=== PATIENT | male | born 1975 | race Two or more races ===

== ENCOUNTER 2023-10-24 17:25 | Emergency (ER) | payer MEDICAID, OTHER ==
[~2023-10-24] VITALS: Ht 172.7 cm; Wt 91.3 kg
[2023-10-24 17:36] VITALS: BP 148/89; PULSE 67; RESP 18; O2SAT 98
[2023-10-24 18:12] LABS: Chloride 110 mmol/L (98-107); Potassium 4.3 mmol/L (3.5-5.1); Sodium 142 mmol/L (136-145)
[2023-10-24 18:13] LABS: Anion Gap 5 (5-15); Calcium 9.9 mg/dL (8.7-10.4); Carbon Dioxide 27 mmol/L (20-30)
[2023-10-24 18:17] LABS: Basophils # (auto) 0 10 ^3/uL (0-0.2); Basophils % (auto) 0.5 % (0.0-2.0); Eosinophils # (auto) 0.1 10 ^3/uL (0-0.8); Eosinophils % (auto) 0.9 % (0.0-7.0); Hemoglobin 14.5 g/dL (13.5-17.5); Lymphocytes % (auto) 30.6 % (10.0-50.0); Mean Corpuscular Hemoglobin 29.9 pg (28.0-32.0); Mean Corpuscular Hgb Conc. 34.5 g/dL (32.0-36.0); Mean Corpuscular Volume 86.7 fL (80.0-100.0); Monocytes # (auto) 0.4 10 ^3/uL (0-1.3); Neutrophils # (auto) 3.9 10 ^3/uL (1.6-8.6); Nucleated Red Blood Cells % 0.1 %; Red Blood Cells 4.85 10^6/uL (4.5-5.90); Red Cell Distribution Width 13.3 % (11.8-14.3); White Blood Cell 6.4 10^3/uL (4.4-10.8)
[2023-10-24 18:18] LABS: BUN/Creatinine Ratio 17.8 (10.0-20.0); Blood Urea Nitrogen 16 mg/dL (9-23); Glucose 89 mg/dL (74-106)
[2023-10-24] MEDS ORDERED: HYDR25SU21 PR (19:14)
== END 2023-10-24 21:46 | disposition home or self-care (01) ==
LOC: ER 17:25
DX: K64.8 Other hemorrhoids (principal); K62.5 Hemorrhage of anus and rectum
CPT/HCPCS: 36415; 74176; 80048; 85025

== ENCOUNTER 2024-02-23 09:04 | Inpatient (IN) | payer MEDICAID ==
[~2024-02-23] VITALS: Ht 172.7 cm; Wt 93.3 kg
[~2024-02-23 09:04] MED LIST: HYDR25SU21 PR
--- NOTE | 2024-02-23 09:38 | ED.PDOC ---
HPI Comments 48 y.o male presents to the ED for a chief complaint of substernal chest pain associated with a headache that started 2 weeks ago. Patient described pain as sharp, constant, non radiating with no alleviating factors and rates pain a 7/10. Patient reports he also had high blood pressure readings at home but denies history of HTN. Upon ED arrival, pressure read 154/94. He denies any SOB, nausea, vomiting, diarrhea, abdominal pain, recent head injuries, dizziness. He denies medical, surgical history or allergies. No substance, alcohol or tobacco noted. Chief Complaint: High Blood Pressure Time Seen by MD: 09:26 Reviewed Notes: Nurses Notes, Medications, Allergies Allergies: Coded Allergies: NO KNOWN ALLERGIES (Unverified , 02/23/24) Home Meds Active Scripts Hydrocortisone Acetate (Anusol-Hc) 25 Mg Sup, 1 SUPP [place] BID, #14 SUPP Prov:MALISSA SADLER MD 10/24/23 Information Source: Patient Mode of Arrival: Ambulatory Severity: Moderate Timing: Weeks (2) Duration: Since onset Location: Substernal Radiation: No Radiation Quality: Sharp Onset: At Rest Cardiac Risk Factors: None PE Risk Factors: None History of: None Modifying Factors: Nothing Associated Signs and Symptoms: Other (headache ) Past Medical History PAST MEDICAL HISTORY: Denies Surgical History: Denies all surgeries Family History Family History: Family hx of DM Social History Smoker: Non-Smoker Alcohol: Denies ETOH Use Drugs: Denies Drug Use Lives In: Home Constitutional: denies: chills, diaphoresis, fatigue, fever, malaise, sweats, weakness, others EENTM: denies: blurred vision, double vision, ear bleeding, ear discharge, ear drainage, ear pain, ear ringing, eye pain, eye redness, hearing loss, mouth pain, mouth swelling, nasal discharge, nose bleeding, nose congestion, nose pain, photophobia, tearing, throat pain, throat swelling, voice changes, others Respiratory: denies: cough, hemoptysis, orthopnea, SOB at rest, shortness of breath, SOB with excertion, stridor, wheezing, others Cardiovascular: reports: chest pain; denies: dizzy spells, diaphoresis, Dyspnea on exertion, edema, irregular heart beat, left arm pain, lightheadedness, palpitations, PND, syncope, others Gastrointestinal: denies: abdomen distended, abdominal pain, blood streaked bowels, constipated, diarrhea, dysphagia, difficulty swallowing, hematemesis, melena, nausea, poor appetite, poor fluid intake, rectal bleeding, rectal pain, vomiting, others Genitourinary: denies: burning, dysuria, flank pain, frequency, hematuria, incontinence, penile discharge, penile sore, pain, testicle pain, testicle swelling, urgency, others Neurological: reports: headache; denies: dizziness, fainting, left sided numbness, left sided weakness, numbness, paresthesia, pre-existing deficit, right sided numbness, right sided weakness, seizure, speech problems, tingling, tremors, weakness, others Musculoskeletal: denies: back pain, gout, joint pain, joint swelling, muscle pain, muscle stiffness, neck pain, others Integumetry: denies: bruises, change in color, change in hair/nails, dryness, laceration, lesions, lumps, rash, wounds, others Allergic/Immunocompromised: denies: Difficulty Healing, Frequent Infections, Hives, Itching, others Hematologic/Lymphatic: denies: anemia, blood clots, easy bleeding, easy bruising, swollen glands, others Endocrine: denies: excessive hunger, excessive sweating, excessive thirst, excessive urination, flushing, intolerance to cold, intolerance to heat, unexplained weight gain, unexplained weight loss, others Psychiatric: denies: anxiety, bipolar disorder, depression, hopeless, panic disorder, schizophrenia, sleepless, suicidal, others All Other Systems: Reviewed and Negative Physical Exam General Appearance: Moderate Distress HEENT: Normal ENT Inspection, Pharynx Normal, TMs Normal Neck: Full Range of Motion, Non-Tender, Normal, Normal Inspection Respiratory: Chest Non-Tender, Lungs Clear, No Accessory Muscle Use, No Respiratory Distress, Normal Breath Sounds Cardiovascular: No Edema, No JVD, No Murmur, No Gallop, Normal Peripheral Pulses, Regular Rate/Rhythm Breast Exam: Deferred Gastrointestinal: No Organomegaly, Non Tender, No Pulsatile Mass, Normal Bowel Sounds, Soft Genitalia: Deferred Pelvic: Deferred Rectal: Deferred Extremities: No calf tenderness, Normal capillary refill, Normal inspection, Normal range of motion, Non-tender, No pedal edema Musculoskeletal : Apperance: Normal Neurologic: Alert, electronic test technician II-XII nml as Tested, No Motor Deficits, Normal Affect, Normal Mood, No Sensory Deficits Cerebellar Function: Normal Reflexes: Normal Skin: Dry, Normal Color, Warm Peripheral Pulses: 3+ Radial (R), 3+ Radial (L) Lymphatic: No Adenopathy Was a procedure done? Was a procedure done?: No CP Differential Dx Differential Diagnosis: A-fib, A-Flutter, Angina, Anxiety / Panic Attack, Atrial Dysrhythmia, Electrolyte Disorder, N/A Differential Diagnosis: Angina, Chest Wall Pain, Cholelithiasis, Costochondrit is, Esophageal reflux/spasm, Pericarditis X-Ray, Labs, Meds, VS Vital Signs Date Time Temp Pulse Resp B/P (MAP) Pulse Ox O2 Delivery O2 Flow Rate FiO2 02/23/24 09:23 66 02/23/24 09:23 98.3 62 16 155/94 (114) 98 Lab Test 02/23/24 10:43 02/23/24 09:29 Range/Units Troponin I High Sensitivity < 3 L < 3 L </=54 ng/L White Blood Count 6.8 4.4-10.8 10^3/uL Red Blood Count 5.24 4.5-5.90 10^6/uL Hemoglobin 15.4 13.5-17.5 g/dL Hematocrit 45.7 41.0-53.0 % Mean Corpuscular Volume 87.1 80.0-100.0 fL Mean Corpuscular Hemoglobin 29.4 28.0-32.0 pg Mean Corpuscular Hemoglobin Concent 33.8 32.0-36.0 g/dL Red Cell Distribution Width 13.1 11.8-14.3 % Platelet Count 193 140-450 10^3/uL Mean Platelet Volume 8.7 6.9-10.8 fL Neutrophils (%) (Auto) 54.3 37.0-80.0 % Lymphocytes (%) (Auto) 36.2 10.0-50.0 % Monocytes (%) (Auto) 7.8 0.0-12.0 % Eosinophils (%) (Auto) 1.0 0.0-7.0 % Basophils (%) (Auto) 0.7 0.0-2.0 % Neutrophils # (Auto) 3.7 1.6-8.6 10 ^3/uL Lymphocytes # (Auto) 2.5 0.4-5.4 10 ^3/uL Monocytes # (Auto) 0.5 0-1.3 10 ^3/uL Eosinophils # (Auto) 0.1 0-0.8 10 ^3/uL Basophils # (Auto) 0 0-0.2 10 ^3/uL Nucleated Red Blood Cells 0.1 % Sodium Level 139 136-145 mmol/L Potassium Level 4.2 3.5-5.1 mmol/L Chloride Level 105 98-107 mmol/L Carbon Dioxide Level 27 20-31 mmol/L Anion Gap 7 5-15 Blood Urea Nitrogen 14 9-23 mg/dL Creatinine 0.97 0.700-1.30 mg/dL Glomerular Filtration Rate Calc 97 >90 mL/min BUN/Creatinine Ratio 14.4 10.0-20.0 Serum Glucose 86 74-106 mg/dL Calcium Level 10.2 8.7-10.4 mg/dL Total Bilirubin 1.2 H 0.2-1.0 mg/dL Aspartate Amino Transferase (AST) 15 13-40 U/L Alanine Aminotransferase (ALT) 22 7-40 U/L Alkaline Phosphatase 77 46-116 U/L Total Protein 7.8 5.7-8.2 g/dL Albumin 4.9 H 3.2-4.8 g/dL Patient alert. Complaining of chest pain. Vitals stable. Answering questions. Was given aspirin. Was given nitro. Blood pressure elevated. Has risk factor for his coronary artery disease. Echocardiogram. Reviewed her history. Explained to the patient. Continue cardiac monitoring. EKG reviewed does not show any acute changes. Time of 1ST Reevaluation: 09:35 Reevaluation 1ST: Unchanged Patient Education/Counseling: Diagnosis, Treatment, Prognosis Family Education/Counseling: No Family Present Departure 1 Departure Time of Disposition: 11:47 Impression: Primary Impression: Chest pain of unknown etiology Additional Impressions: Hypertensive urgency Uncontrolled diabetes mellitus Qualified Codes: E13.65 - Other specified diabetes mellitus with hyperglycemia Disposition: ADMITTED INPATIENT Admit to: Med Surg Condition: Guarded Critical Care Note Critical Care Time?: Yes (45 min-critical care time only) Stability Stability form required: No Heart Score Heart Score: Heart Score Response (Comments) Value History Slightly Suspicious 0 EKG Normal 0 Age 45-64 1 Risk Factors 1 or 2 risk factors 1 Troponin Normal limit 0 Total 2 I personally scribed for DIANE JOHNSON MD ([email or web address]) on 02/23/24 at 09:38. Electronically submitted by Rachael Davidson ([facility]). DIANE JOHNSON MD Feb 23, 2024 09:38
[2024-02-23 10:12] LABS: Basophils # (auto) 0 10 ^3/uL (0-0.2); Basophils % (auto) 0.7 % (0.0-2.0); Eosinophils # (auto) 0.1 10 ^3/uL (0-0.8); Hematocrit 45.7 % (41.0-53.0); Hemoglobin 15.4 g/dL (13.5-17.5); Lymphocytes # (auto) 2.5 10 ^3/uL (0.4-5.4); Lymphocytes % (auto) 36.2 % (10.0-50.0); Mean Corpuscular Hemoglobin 29.4 pg (28.0-32.0); Mean Corpuscular Hgb Conc. 33.8 g/dL (32.0-36.0); Mean Corpuscular Volume 87.1 fL (80.0-100.0); Monocytes # (auto) 0.5 10 ^3/uL (0-1.3); Monocytes % (auto) 7.8 % (0.0-12.0); Neutrophils # (auto) 3.7 10 ^3/uL (1.6-8.6); Neutrophils % (auto) 54.3 % (37.0-80.0); Nucleated Red Blood Cells % 0.1 %; Platelet Count (auto) 193 10^3/uL (140-450); Red Blood Cells 5.24 10^6/uL (4.5-5.90); Red Cell Distribution Width 13.1 % (11.8-14.3); White Blood Cell 6.8 10^3/uL (4.4-10.8)
[2024-02-23 10:15] LABS: Alanine Aminotransferase 22 U/L (7-40); Albumin 4.9 g/dL (3.2-4.8); Alkaline Phosphatase 77 U/L (46-116); Anion Gap 7 (5-15); Aspartate Aminotransferase 15 U/L (13-40); BUN/Creatinine Ratio 14.4 (10.0-20.0); Bilirubin, Total 1.2 mg/dL (0.2-1.0); Blood Urea Nitrogen 14 mg/dL (9-23); Calcium 10.2 mg/dL (8.7-10.4); Carbon Dioxide 27 mmol/L (20-31); Chloride 105 mmol/L (98-107); Glucose 86 mg/dL (74-106); Potassium 4.2 mmol/L (3.5-5.1); Sodium 139 mmol/L (136-145); Total Protein 7.8 g/dL (5.7-8.2)
[2024-02-23] MEDS: ASPirin 325 MG TAB PO ONE (12:28)
[2024-02-23] MEDS: NITROGLYCERIN 0.4 MG SL TAB SL ONE (12:28)
[2024-02-23 12:30] VITALS: PULSE 77; RESP 18; O2SAT 98
[2024-02-23] MEDS ORDERED: MORPHINE SULFATE INJ 2 MG/ml SYRG IV PRN (14:15)
[2024-02-23] MEDS ORDERED: HYDROcodone-ACET 5/325MG TAB PO PRN (14:15)
[2024-02-23] MEDS ORDERED: NITROGLYCERIN 0.4 MG SL TAB SL PRN (14:15)
[2024-02-23] MEDS ORDERED: ONDANSETRON HCL 4 MG/2 ML VIAL IV PRN (14:15)
[2024-02-23 15:02] LABS: Triglycerides 99 mg/dL (< 150)
[2024-02-23 15:03] LABS: LDL Cholesterol 133 mg/dL (< 100)
[2024-02-23 15:04] LABS: HDL Cholesterol 55 mg/dL (40-59)
[2024-02-23 15:05] LABS: Cholesterol 203 mg/dL (< 200)
--- NOTE | 2024-02-23 15:19 | DVHHP2 ---
History of Present Illness Reason for Visit: Chest pain History of Present Illness 48-year-old male presented to the ED with chief complaint of substernal chest pain associated with headache, patient states headache started 2 weeks ago which has been off and on. Patient states chest pain started today, patient describes it as sharp, constant and nonradiating with no alleviating factors, rates pain 7/10. Patient states blood pressure readings were high at home and denies a history of hypertension. Patient denies dizziness, diaphoresis, shortness of breath, abdominal pain, no nausea, vomiting, fever, or chills endorsed by the patient. Patient was admitted for further evaluation medical management. Past Medical History Denies Past Surgical History Denies Family History Reviewed noncontributory to the management of this case Smoke: No ALCOHOL: none Drugs: None Lives: with Family Review of Systems Constitutional: No: Fever, Chills, Sweats, Weakness, Malaise, Other Eyes: No: Pain, Vision change, Conjunctivae inflammation, Eyelid inflammation, Other, Redness ENT: No: Ear pain, Ear discharge, Nose pain, Nose discharge, Nose congestion, Mouth pain, Mouth swelling, Throat pain, Throat swelling, Other Respiratory: No: Cough, Dry, Shortness of breath, SOB with excertion, Wheezing, Hemoptysis, Pleuritic Pain, Sputum, Wheezing, Other Cardiovascular: Chest Pain (Pressure, sharp); No: Palpitations, Orthopnea, Paroxysmal Noc. Dyspnea, Edema, Lt Headedness, Other Gastrointestinal: No: Nausea, Vomiting, Abdominal Pain, Diarrhea, Constipation, Melena, Hematochezia, Other Genitourinary: No Dysuria, No Frequency, No Incontinence, No Hematuria, No Retention, No Other Musculoskeletal: No: other, neck pain, shoulder pain, arm pain, back pain, hand pain, leg pain, foot pain Skin: No: Rash, Lesions, Jaundice, Bruising, Other Neurological: No: Weakness, Numbness, Incoordination, Change in speech, Confusion, Seizures, Other Allergies: Coded Allergies: NO KNOWN ALLERGIES (Unverified , 02/23/24) Medications Current Medications Medications Dose Ordered Sig/Aly Route Start Time Stop Time Status Last Admin Dose Admin Acetaminophen/ Hydrocodone Bitart 1 tab Q4HP PRN PO 02/23/24 14:15 Ondansetron HCl 4 mg Q4HP PRN IV 02/23/24 14:15 Nitroglycerin 0.4 mg Q5MINP PRN SL 02/23/24 14:15 Morphine Sulfate 2 mg Q30M PRN IV 02/23/24 14:15 Exam Vital Signs Vital Signs Date Time Temp Pulse Resp B/P (MAP) Pulse Ox O2 Delivery O2 Flow Rate FiO2 02/23/24 12:30 77 18 98 Room Air* 0 21 02/23/24 12:29 98.2 128/88 (101) 98.2 General Appearance: Alert, Oriented X3, Cooperative, No acute distress HEENT: Atraumatic, PERRLA, EOMI, Mucous membr. moist/pink Respiratory: Clear to auscultation, Normal air movement Cardiovascular: Regular rate, Normal S1, Normal S2, No murmurs Abdominal: Normal bowel sounds, Soft, No tenderness, No hepatospenomegaly, No masses Extremities: No clubbing, No cyanosis, No edema, Normal pulses, No tenderness/swelling Skin: No rashes, No breakdown, No significant lesion Neuro: Normal gait, Normal speech, Strength at 5/5 X4 ext, Normal tone, Sensation intact, Cranial nerves 3-12 NL Psych/Mental Status: Mental status NL, Mood NL Labs/Xrays Labs, ED notes and imaging reviewed Labs Test 02/23/24 10:43 02/23/24 09:29 Range/Units Troponin I High Sensitivity < 3 L </=54 ng/L White Blood Count 6.8 4.4-10.8 10^3/uL Red Blood Count 5.24 4.5-5.90 10^6/uL Hemoglobin 15.4 13.5-17.5 g/dL Hematocrit 45.7 41.0-53.0 % Mean Corpuscular Volume 87.1 80.0-100.0 fL Mean Corpuscular Hemoglobin 29.4 28.0-32.0 pg Mean Corpuscular Hemoglobin Concent 33.8 32.0-36.0 g/dL Red Cell Distribution Width 13.1 11.8-14.3 % Platelet Count 193 140-450 10^3/uL Mean Platelet Volume 8.7 6.9-10.8 fL Neutrophils (%) (Auto) 54.3 37.0-80.0 % Lymphocytes (%) (Auto) 36.2 10.0-50.0 % Monocytes (%) (Auto) 7.8 0.0-12.0 % Eosinophils (%) (Auto) 1.0 0.0-7.0 % Basophils (%) (Auto) 0.7 0.0-2.0 % Neutrophils # (Auto) 3.7 1.6-8.6 10 ^3/uL Lymphocytes # (Auto) 2.5 0.4-5.4 10 ^3/uL Monocytes # (Auto) 0.5 0-1.3 10 ^3/uL Eosinophils # (Auto) 0.1 0-0.8 10 ^3/uL Basophils # (Auto) 0 0-0.2 10 ^3/uL Nucleated Red Blood Cells 0.1 % Sodium Level 139 136-145 mmol/L Potassium Level 4.2 3.5-5.1 mmol/L Chloride Level 105 98-107 mmol/L Carbon Dioxide Level 27 20-31 mmol/L Anion Gap 7 5-15 Blood Urea Nitrogen 14 9-23 mg/dL Creatinine 0.97 0.700-1.30 mg/dL Glomerular Filtration Rate Calc 97 >90 mL/min BUN/Creatinine Ratio 14.4 10.0-20.0 Serum Glucose 86 74-106 mg/dL Calcium Level 10.2 8.7-10.4 mg/dL Total Bilirubin 1.2 H 0.2-1.0 mg/dL Aspartate Amino Transferase (AST) 15 13-40 U/L Alanine Aminotransferase (ALT) 22 7-40 U/L Alkaline Phosphatase 77 46-116 U/L Total Protein 7.8 5.7-8.2 g/dL Albumin 4.9 H 3.2-4.8 g/dL Assessment/Plan Assessment/Plan Acute chest pain Admit telemetry ACS protocol Consult cardiology No current chest pain after nitro/aspirin given Serial troponin negative x2 EKG sinus rhythm Hypertensive urgency Blood pressure now within normal limits 128/88 mmHg Lipid panel pending Fen/PPX Cardiac diet GI/VTE prophylaxis not indicated Plan discussed with: Patient My Orders Orders - MAURI LAI Procedure Category Date Status Time * Cardiology Consult CONS 02/23/24 Transmitted 14:09 Admit ADMIT 02/23/24 Transmitted 14:09 Code Status CODE 02/23/24 Transmitted 14:09 Vital Signs DELVIN 02/23/24 In Process 14:09 Review Orders With DELVIN 02/23/24 In Process Adm. 14:09 Up Ad Ludmila BANNER 02/23/24 In Process 14:09 Notify Of Changes BANNER 02/23/24 In Process From Base 14:09 Advance Directive BANNER 02/23/24 In Process 14:09 Basic Metabolic Panel LAB 02/24/24 Verified 04:00 Complete Blood Count LAB 02/24/24 Verified 04:00 Lipid Panel LAB 02/23/24 In Process 14:09 Patient Condition ORDERS 02/23/24 Transmitted 14:09 Allergies BANNER 02/23/24 In Process 14:09 Hydrocodone-Acet PHA 02/23/24 In Process 5/325mg Tab ([place] 14:15 Ondansetron Hcl PHA 02/23/24 In Process (Zofran) 14:15 Cardiac DIET 02/23/24 Transmitted Diet-2gna,Lofat,Lochol Dinner Nitroglycerin PHA 02/23/24 In Process Sublingual (Ntrostat 14:15 Morphine Sulfate PHA 02/23/24 In Process Injection 14:15 Stat Ekg For Chest BANNER 02/23/24 In Process Pain 14:09 Notify Of Changes BANNER 02/23/24 In Process From Base 14:09 Cant Gang Sawyer For BANNER 02/23/24 In Process 24 Hours 14:09 Emergency Dysrhythmia BANNER 02/23/24 In Process Protocol 14:09 Rhythm Strips Once BANNER 02/23/24 In Process Every Shift 14:09 Oxygen By Nasal RT 02/23/24 Transmitted Cannula 14:09 Date of Service: Feb 23, 2024 Billing Provider: MAURI LAI Common Visit Codes: [id number] INP/OBS CARE (HIGH) MAURI LAI Feb 23, 2024 15:19
[2024-02-23] MEDS ORDERED: cloNIDine HCL 0.1 MG TAB PO PRN (15:30)
[2024-02-23 20:20] VITALS: PULSE 61; RESP 17; O2SAT 93
[2024-02-24 05:10] LABS: Basophils # (auto) 0 10 ^3/uL (0-0.2); Basophils % (auto) 0.5 % (0.0-2.0); Eosinophils # (auto) 0 10 ^3/uL (0-0.8); Eosinophils % (auto) 0.8 % (0.0-7.0); Hematocrit 41.9 % (41.0-53.0); Hemoglobin 14.1 g/dL (13.5-17.5); Lymphocytes # (auto) 1.7 10 ^3/uL (0.4-5.4); Lymphocytes % (auto) 30.4 % (10.0-50.0); Mean Corpuscular Hemoglobin 29.7 pg (28.0-32.0); Mean Corpuscular Hgb Conc. 33.7 g/dL (32.0-36.0); Monocytes # (auto) 0.4 10 ^3/uL (0-1.3); Neutrophils # (auto) 3.4 10 ^3/uL (1.6-8.6); Neutrophils % (auto) 60.3 % (37.0-80.0); Nucleated Red Blood Cells % 0.2 %; Platelet Count (auto) 163 10^3/uL (140-450); Red Blood Cells 4.76 10^6/uL (4.5-5.90); Red Cell Distribution Width 13.3 % (11.8-14.3); White Blood Cell 5.6 10^3/uL (4.4-10.8)
[2024-02-24 05:20] LABS: Anion Gap 7 (5-15); Carbon Dioxide 26 mmol/L (20-31); Chloride 110 mmol/L (98-107); Potassium 4.4 mmol/L (3.5-5.1); Sodium 143 mmol/L (136-145)
[2024-02-24 05:21] LABS: Calcium 9.3 mg/dL (8.7-10.4)
[2024-02-24 05:26] LABS: BUN/Creatinine Ratio 19.3 (10.0-20.0); Blood Urea Nitrogen 16 mg/dL (9-23); Glucose 93 mg/dL (74-106)
[2024-02-24 08:02] VITALS: TEMP 98.1
--- NOTE | 2024-02-24 08:20 | DVH ---
CHEST RADIOGRAPH Indication:chest pain Technique: Single frontal view of the chest was obtained Comparison: None FINDINGS: Lines and Tubes: None Lungs: No focal consolidation. Pleura: No effusion. No pneumothorax. Cardiomediastinal contours: Unremarkable Bones: No acute osseous abnormality. IMPRESSION: No acute cardiopulmonary disease.
[2024-02-24 08:35] LABS: Amphetamine Screen, Urine Neg (NEGATIVE); Barbiturate Scree,Urine Neg (NEGATIVE); Benzodiazephine Screen, Urine Neg (NEGATIVE); Cocaine Screen, Urine Neg (NEGATIVE); Opiate Scree,Urine Neg (NEGATIVE); Phencyclidine Screen, Urine Neg (NEGATIVE)
[2024-02-24 08:36] LABS: Cannabinoid Screen, Urine Neg (NEGATIVE)
--- NOTE | 2024-02-24 10:19 | ECG ---
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
[2024-02-24 12:36] VITALS: BP 160/102; PULSE 64
[2024-02-24 12:56] LABS: Erythrocyte Sedimentation Rate 2 mm/hr (0-20)
[2024-02-24] MEDS: LISINOPRIL 5 MG TAB PO ONE (13:15)
[2024-02-24 14:26] VITALS: BP 112/72; PULSE 65; RESP 18; O2SAT 97
--- NOTE | 2024-02-24 16:11 | DVHINCON2 ---
Date Seen: Feb 24, [address] Tapia Reason for Consultation Chest pain History of Present Illness 48-year-old male patient with past medical history of hypertension and type 1 obesity who presented to the emergency department with a chief complaint of chest pain. The chest pain is described as pressure-like nonradiating constant and intermittently occurring over the past 2 weeks. He also reported associated headache with during the same period of time. The patient denies any prior similar episode and says he is otherwise active with no limitations during physical activity. 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 The patient reports a significant family history of diabetes affecting the majority of his relatives. Laboratory evaluation revealed elevated cholesterol and LDL levels. His vital signs were notable for mild hypotension. Cardiac biomarkers including troponin were negative and a resting EKG was unremarkable the patient underwent a stress test using the Juwan protocol, which was completed without issues. Results were normal except for increased diastolic blood pressure during the test consistent with underlying hypertension. Given the findings the patient was diagnosed with hypertension and started on lisinopril 2.5 mg daily for blood pressure control. He was also counseled on lifestyle modifications including dietary changes and increased physical activity, to address his elevated cholesterol and LDL levels. The patient was advised to establish care with the primary care provider and a deep fryer assembler for further follow-up. For the cardiovascular risk factor optimization was emphasized. Past Medical History Type 1 obesity Essential Hypertension Allergies: Coded Allergies: NO KNOWN ALLERGIES (Unverified , 02/23/24) Home Meds Active Scripts Hydrocortisone Acetate (Anusol-Hc) 25 Mg Sup, 1 SUPP [place] BID, #14 SUPP Prov:MALISSA SADLER MD 10/24/23 Current Medications Current Medications Medications (Trade) Dose Ordered Sig/Aly Route PRN Reason Start Time Stop Time Status Last Admin Atorvastatin Calcium (Lipitor) 40 mg HS PO 02/24/24 22:00 Lisinopril (Zestril Tablet) 2.5 mg DAILY PO 02/25/24 10:00 Review of Systems Constitutional: No: Fever, Chills, Sweats, Weakness, Malaise, Other Eyes: No: Pain, Vision change, Conjunctivae inflammation, Eyelid inflammation, Other, Redness ENT: No: Ear pain, Ear discharge, Nose pain, Nose discharge, Nose congestion, Mouth pain, Mouth swelling, Throat pain, Throat swelling, Other Respiratory: No Wheezing, Hemoptysis, Pleuritic Pain, Sputum, Wheezing, Other Cardiovascular: No: Chest Pain, Palpitations, Orthopnea, Paroxysmal Noc. Dyspnea, Edema, Lt Headedness, Other Gastrointestinal: No: Nausea, Vomiting, Abdominal Pain, Diarrhea, Constipation, Melena, Hematochezia, Other Musculoskeletal: No: other, neck pain, shoulder pain, arm pain, back pain, hand pain, leg pain, foot pain Neurological:; No: Weakness, Numbness, Incoordination, Change in speech, Confusion, Seizures Vital Signs Vital Signs Date Time Temp Pulse Resp B/P (MAP) Pulse Ox O2 Delivery O2 Flow Rate FiO2 02/24/24 14:26 65 18 112/72 (85) 97 02/24/24 08:02 98.1 98.1 02/23/24 20:20 Room Air* 0 21 Physical Exam Examination General Appearance: Alert, Oriented X3, Cooperative, No acute distress HEENT: EOMI Respiratory: Clear to auscultation, Normal air movement Cardiovascular: Regular rate, Normal S1, Normal S2 Abdominal: Normal bowel sounds Extremities: No cyanosis, No edema, Normal pulses, No tenderness/swelling Skin: No rashes, No breakdown Neuro: Normal gait, Normal speech, Strength at 5/5 X4 ext, Normal tone, Sensation intact, Cranial nerves 3-12 NL, Reflexes 2+ Psych/Mental Status: Mental status NL, Mood NL Labs/Diagnostic Data Labs Test 02/24/24 06:47 02/24/24 04:30 02/23/24 10:43 02/23/24 09:29 Range/Units Urine Opiates Screen Neg NEGATIVE Urine Fentanyl Screen Neg NEGATIVE Urine Barbiturates Screen Neg NEGATIVE Urine Phencyclidine Screen Neg NEGATIVE Urine Amphetamines Screen Neg NEGATIVE Urine Benzodiazepines Screen Neg NEGATIVE Urine Cocaine Screen Neg NEGATIVE Urine Cannabinoids Screen Neg NEGATIVE White Blood Count 5.6 4.4-10.8 10^3/uL Red Blood Count 4.76 4.5-5.90 10^6/uL Hemoglobin 14.1 13.5-17.5 g/dL Hematocrit 41.9 41.0-53.0 % Mean Corpuscular Volume 88.0 80.0-100.0 fL Mean Corpuscular Hemoglobin 29.7 28.0-32.0 pg Mean Corpuscular Hemoglobin Concent 33.7 32.0-36.0 g/dL Red Cell Distribution Width 13.3 11.8-14.3 % Platelet Count 163 140-450 10^3/uL Mean Platelet Volume 8.6 6.9-10.8 fL Neutrophils (%) (Auto) 60.3 37.0-80.0 % Lymphocytes (%) (Auto) 30.4 10.0-50.0 % Monocytes (%) (Auto) 8.0 0.0-12.0 % Eosinophils (%) (Auto) 0.8 0.0-7.0 % Basophils (%) (Auto) 0.5 0.0-2.0 % Neutrophils # (Auto) 3.4 1.6-8.6 10 ^3/uL Lymphocytes # (Auto) 1.7 0.4-5.4 10 ^3/uL Monocytes # (Auto) 0.4 0-1.3 10 ^3/uL Eosinophils # (Auto) 0 0-0.8 10 ^3/uL Basophils # (Auto) 0 0-0.2 10 ^3/uL Nucleated Red Blood Cells 0.2 % Erythrocyte Sedimentation Rate 2 0-20 mm/hr Sodium Level 143 136-145 mmol/L Potassium Level 4.4 3.5-5.1 mmol/L Chloride Level 110 H 98-107 mmol/L Carbon Dioxide Level 26 20-31 mmol/L Anion Gap 7 5-15 Blood Urea Nitrogen 16 9-23 mg/dL Creatinine 0.83 0.700-1.30 mg/dL Glomerular Filtration Rate Calc 109 >90 mL/min BUN/Creatinine Ratio 19.3 10.0-20.0 Serum Glucose 93 74-106 mg/dL Hemoglobin A1c 5.3 <5.7 % A1C Calcium Level 9.3 8.7-10.4 mg/dL C-Reactive Protein High Sensitivity 0.07 <1.0 mg/dL Thyroid Stimulating Hormone (TSH) 1.78 0.55-4.78 uIU/mL Troponin I High Sensitivity < 3 L </=54 ng/L Triglycerides Level 99 < 150 mg/dL Cholesterol Level 203 H < 200 mg/dL LDL Cholesterol 133 H < 100 mg/dL HDL Cholesterol 55 40-59 mg/dL Total Bilirubin 1.2 H 0.2-1.0 mg/dL Aspartate Amino Transferase (AST) 15 13-40 U/L Alanine Aminotransferase (ALT) 22 7-40 U/L Alkaline Phosphatase 77 46-116 U/L Total Protein 7.8 5.7-8.2 g/dL Albumin 4.9 H 3.2-4.8 g/dL Assessment Acute chest pain likely musculoskeletal Essential Hypertension Stress test (protocol) did show increased diastolic blood pressure during the test Type 1 obesity Hyperlipidemia Plan/Recommendation Conservative management Start high blood pressure control with lisinopril 2.5 mg daily Start lipid lowering agents Lifestyle modification counseling, improving dietary habits and physical activity was encouraged. Stress test (juwan protocol) was unremarkable Plan discussed with: Patient Date of Service: Feb 24, 2024 Billing Provider: ADALBERTO PHILIP MD Cardiology Common Codes: [id number] INP/OBS CARE (High) PAKO WHITMORE RESIDENT Feb 24, 2024 16:11
[2024-02-24] MEDS ORDERED: ATOR20TA50 PO (17:40)
[2024-02-24] MEDS ORDERED: LISI-275 PO (17:40)
--- NOTE | 2024-02-24 17:41 | DVHDSRES ---
Discharge Summary Date of Admission Resident Creating Document: KAYODE WRIGHT RESIDENT Feb 23, 2024 at 14:09 Date of Discharge: Feb 24, 2024 Admitting Diagnosis Left-sided chest pain Labs/Diagnostic Data: Laboratory Results Test 02/24/24 06:47 02/24/24 04:30 02/23/24 10:43 02/23/24 09:29 Urine Opiates Screen Neg (NEGATIVE) Urine Fentanyl Screen Neg (NEGATIVE) Urine Barbiturates Screen Neg (NEGATIVE) Urine Phencyclidine Screen Neg (NEGATIVE) Urine Amphetamines Screen Neg (NEGATIVE) Urine Benzodiazepines Screen Neg (NEGATIVE) Urine Cocaine Screen Neg (NEGATIVE) Urine Cannabinoids Screen Neg (NEGATIVE) White Blood Count 5.6 10^3/uL (4.4-10.8) Red Blood Count 4.76 10^6/uL (4.5-5.90) Hemoglobin 14.1 g/dL (13.5-17.5) Hematocrit 41.9 % (41.0-53.0) Mean Corpuscular Volume 88.0 fL (80.0-100.0) Mean Corpuscular Hemoglobin 29.7 pg (28.0-32.0) Mean Corpuscular Hemoglobin Concent 33.7 g/dL (32.0-36.0) Red Cell Distribution Width 13.3 % (11.8-14.3) Platelet Count 163 10^3/uL (140-450) Mean Platelet Volume 8.6 fL (6.9-10.8) Neutrophils (%) (Auto) 60.3 % (37.0-80.0) Lymphocytes (%) (Auto) 30.4 % (10.0-50.0) Monocytes (%) (Auto) 8.0 % (0.0-12.0) Eosinophils (%) (Auto) 0.8 % (0.0-7.0) Basophils (%) (Auto) 0.5 % (0.0-2.0) Neutrophils # (Auto) 3.4 10 ^3/uL (1.6-8.6) Lymphocytes # (Auto) 1.7 10 ^3/uL (0.4-5.4) Monocytes # (Auto) 0.4 10 ^3/uL (0-1.3) Eosinophils # (Auto) 0 10 ^3/uL (0-0.8) Basophils # (Auto) 0 10 ^3/uL (0-0.2) Nucleated Red Blood Cells 0.2 % Erythrocyte Sedimentation Rate 2 mm/hr (0-20) Sodium Level 143 mmol/L (136-145) Potassium Level 4.4 mmol/L (3.5-5.1) Chloride Level 110 mmol/L (98-107) Carbon Dioxide Level 26 mmol/L (20-31) Anion Gap 7 (5-15) Blood Urea Nitrogen 16 mg/dL (9-23) Creatinine 0.83 mg/dL (0.700-1.30) Glomerular Filtration Rate Calc 109 mL/min (>90) BUN/Creatinine Ratio 19.3 (10.0-20.0) Serum Glucose 93 mg/dL (74-106) Hemoglobin A1c 5.3 % A1C (<5.7) Calcium Level 9.3 mg/dL (8.7-10.4) C-Reactive Protein High Sensitivity 0.07 mg/dL (<1.0) Thyroid Stimulating Hormone (TSH) 1.78 uIU/mL (0.55-4.78) Troponin I High Sensitivity < 3 ng/L (</=54) Triglycerides Level 99 mg/dL (< 150) Cholesterol Level 203 mg/dL (< 200) LDL Cholesterol 133 mg/dL (< 100) HDL Cholesterol 55 mg/dL (40-59) Total Bilirubin 1.2 mg/dL (0.2-1.0) Aspartate Amino Transferase (AST) 15 U/L (13-40) Alanine Aminotransferase (ALT) 22 U/L (7-40) Alkaline Phosphatase 77 U/L (46-116) Total Protein 7.8 g/dL (5.7-8.2) Albumin 4.9 g/dL (3.2-4.8) Other Laboratory Tests 02/24/24 04:30 Brief Hx & Hospital Course: Hospital History: Chris Butler, a 48-year-old Czech-speaking male with a history of hypertension and type 1 obesity presented to the emergency department with pressure-like, non-radiating chest pain occurring intermittently over the past two weeks, along with headaches. He has no primary care physician or city detective and is not on antihypertensive treatment. Laboratory tests showed elevated cholesterol and LDL levels, and mild hypotension was noted. Cardiac biomarkers were negative, and a stress test was normal except for increased diastolic blood pressure. He was diagnosed with hypertension, started on lisinopril 2.5 mg daily, and counseled on lifestyle modifications. He was advised to follow up with a primary care provider and city detective for further management. Patient denied any exertional chest pain, shortness of breath, dyspnea on exertion, PND, orthopnea, palpitation, GERD symptoms or local trauma. Medical conditions treated in hospital: # left-sided localized chest pain likely due to musculoskeletal type chest pain , likely due to heavy object pooling on a daily basis. # acute coronary syndrome ruled out, EKG and troponin unremarkable. Stress test negative as per [facility] protocol. # essential hypertension patient is on lisinopril 2.5 mg daily, 2g salt restriction each day. # mildly elevated lipid profile: Daily atorvastatin 40 mg daily. # mild hypotension, on clonidine: discontinued, started the patient on lisinopril 2.5 daily as per cardiology recommendation. Plan discussed with Dr. Whitaker. Code Status: Full code, discussed for 23 minutes at bedside. Discharge planning needed total 43 minutes of discussion. Patient agreed with the plan. Consults/Reason for consult Cardiology Operations or Procedures [place] [id number] Ph: [phone] DIAGNOSTIC IMAGING Diagnostic Imaging Report : [id number] Signed PATIENT: MARCELLO RONQUILLO JACCT: [id number] UNIT: [id number] : 1975 LOC: [facility] ROOM / BED: [address] [place] [address] AGE / SEX: 48 / M ADM STATUS: ADM IN SERVICE 5 ORDERING PHYSICIAN: PAKO WHITMORE RESIDENT PROCEDURE(s): CXRP - CHEST PORTABLE REASON: chest pain ORDER NUMBER(s): [id number], ACCESSION NUMBER(s): [id number] CHEST RADIOGRAPH Indication:chest pain Technique: Single frontal view of the chest was obtained Comparison: None FINDINGS: Lines and Tubes: None Lungs: No focal consolidation. Pleura: No effusion. No pneumothorax. Cardiomediastinal contours: Unremarkable Bones: No acute osseous abnormality. IMPRESSION: No acute cardiopulmonary disease. ATED BY: NATHAN RAO MD DICTATED DATE/TIME: 02/24/24817 SIGNED BY: NATHAN RAO MD SIGNED DATE/TIME: 02/24/24817 CC: Condition at Discharge: Fair Final Diagnosis/Problems List Left sided chest pain ruled out ACS, likely muskuloskeletal pain. HTN Discharge Disposition: Home Discharge Instruct/Medications Diet: Cardiac 2g Na,low cholest Activity: No Restrictions, As Tolerated Follow Up/Referral: Follow up with discharge clinic. Medications: as per JUN. Please take daily 40mg atorvastatin and lisinopril 2.5 mg daily. Discharge Statement: "Patient was advised to return to the ER or call 911 if any headaches, dizziness, shortness of breath, chest pain, abdominal pain, bleeding, fevers, or worsening of medical condition. Patient was counseled about treatment plan, medications, possible side effects, patientverbalized understanding. All questions were answered to the best of my ability. This discharge took greater then 30 minutes in planning, reviewing documentation, counseling the patient, and discussing with other team members." Labs/Diagnostic Data Laboratory Tests Test 02/24/24 06:47 02/24/24 04:30 Range/Units Urine Opiates Screen Neg NEGATIVE Urine Fentanyl Screen Neg NEGATIVE Urine Barbiturates Screen Neg NEGATIVE Urine Phencyclidine Screen Neg NEGATIVE Urine Amphetamines Screen Neg NEGATIVE Urine Benzodiazepines Screen Neg NEGATIVE Urine Cocaine Screen Neg NEGATIVE Urine Cannabinoids Screen Neg NEGATIVE White Blood Count 5.6 4.4-10.8 10^3/uL Red Blood Count 4.76 4.5-5.90 10^6/uL Hemoglobin 14.1 13.5-17.5 g/dL Hematocrit 41.9 41.0-53.0 % Mean Corpuscular Volume 88.0 80.0-100.0 fL Mean Corpuscular Hemoglobin 29.7 28.0-32.0 pg Mean Corpuscular Hemoglobin Concent 33.7 32.0-36.0 g/dL Red Cell Distribution Width 13.3 11.8-14.3 % Platelet Count 163 140-450 10^3/uL Mean Platelet Volume 8.6 6.9-10.8 fL Neutrophils (%) (Auto) 60.3 37.0-80.0 % Lymphocytes (%) (Auto) 30.4 10.0-50.0 % Monocytes (%) (Auto) 8.0 0.0-12.0 % Eosinophils (%) (Auto) 0.8 0.0-7.0 % Basophils (%) (Auto) 0.5 0.0-2.0 % Neutrophils # (Auto) 3.4 1.6-8.6 10 ^3/uL Lymphocytes # (Auto) 1.7 0.4-5.4 10 ^3/uL Monocytes # (Auto) 0.4 0-1.3 10 ^3/uL Eosinophils # (Auto) 0 0-0.8 10 ^3/uL Basophils # (Auto) 0 0-0.2 10 ^3/uL Nucleated Red Blood Cells 0.2 % Erythrocyte Sedimentation Rate 2 0-20 mm/hr Sodium Level 143 136-145 mmol/L Potassium Level 4.4 3.5-5.1 mmol/L Chloride Level 110 H 98-107 mmol/L Carbon Dioxide Level 26 20-31 mmol/L Anion Gap 7 5-15 Blood Urea Nitrogen 16 9-23 mg/dL Creatinine 0.83 0.700-1.30 mg/dL Glomerular Filtration Rate Calc 109 >90 mL/min BUN/Creatinine Ratio 19.3 10.0-20.0 Serum Glucose 93 74-106 mg/dL Hemoglobin A1c 5.3 <5.7 % A1C Calcium Level 9.3 8.7-10.4 mg/dL C-Reactive Protein High Sensitivity 0.07 <1.0 mg/dL Thyroid Stimulating Hormone (TSH) 1.78 0.55-4.78 uIU/mL Physical Exam General Appearance: No Apparent Distress HEENT: normal ENT inspection, PERRL/EOMI, pharynx normal Neck: Normal Inspection, Non-Tender, Full Range of Motion, Supple Respiratory: chest non-tender, lungs clear, normal breath sounds, no respiratory distress, no accessory muscle use Cardiovascular: normal peripheral pulses, regular rate, rhythm, no edema, no gallop, no JVD, no murmur Gastrointestinal: normal bowel sounds, non tender, soft, no organomegaly, no pulsatile mass Pelvic: Deferred Male Genitalia: no hernia Rectal: deferred Back: normal inspection, no CVA tenderness, no vertebral tenderness Extremities: normal range of motion, non-tender, normal inspection, no pedal edema, no calf tenderness Skin: normal color Lymphatic: no adenopathy ASSESSMENT ASSESSMENT Assessment Left sided chest pain ruled out ACS, likely muskuloskeletal pain. HTN KAYODE WRIGHT RESIDENT Feb 24, 2024 17:41
--- NOTE | 2024-02-24 17:51 | DVHSR ---
APPROVED REPORT EXAM: Two-dimensional and M-mode echocardiogram with Doppler and color Doppler. Blood Pressure: 91/53 mmHg INDICATION Chest Pain RISK FACTORS Height: 68, Weight: 205 DIMENSIONS LVDd5.7 (3.8-5.7cm)LA (2D)4.9 (1.9-4.0cm)Aortic Root4.1 (2.0-3.7cm) LVDs3.5 (2.5-4.0cm)LA (MM) (1.9-4.0cm)Aortic Cusp Exc2.1 (1.5-2.0cm) EF (%) 68.0 (55-70%)Rt. Atrium5.6 (1.9-4.0cm)Asc. Aorta cm IVSd1.2 (0.7-1.1cm)RV (D) (1.8-2.4cm) PWd1.1 (0.7-1.1cm) Mitral Valve MitralMitral Stenosis E wave0.62m/sMV Mean GR.mmHg A wave0.73m/sMV Peak GR.23mmHg E/A ratio0.82D MVAcm2 DECEL [id number] 1/2 [id number] IVRTmsDop MVA2.90cm2 Aortic Valve Aortic ValveAortic Stenosis V11.02m/Richie Mean GR.3mmHg V21.34m/Richie Peak GR.7mmHg LVOT Diameter2.4 (1.8-2.4cm)Doppler AVA3.44cm2 Pulmonic Valve V21.02m/s Tricuspid Valve TR Velocity2.29m/s [id number] Conclusion lvef 60% by visual estimate dillon l rv function, RV likely enlarged left atrium enlarged moderate no severe valve abnormalities noted
[2024-02-24] MEDS ORDERED: ATORVASTATIN 20 MG TAB PO SCH (22:00)
[2024-02-25] MEDS ORDERED: LISINOPRIL 5 MG TAB PO SCH (10:00)
== END 2024-02-24 17:56 | disposition home or self-care (01) | DRG 203 ==
LOC: ER 09:04 → TELE 14:09
PROVIDERS: ADMIT Registered Nurse General Practice; ATTEND Internal Medicine
DX: R07.89 Other chest pain (principal); E11.9 Type 2 diabetes mellitus without complications; I16.0 Hypertensive urgency; E66.9 Obesity, unspecified; E78.00 Pure hypercholesterolemia, unspecified; Z83.3 Family history of diabetes mellitus; Z79.899 Other long term (current) drug therapy; Z68.31 Body mass index [BMI] 31.0-31.9, adult; R51.9 Headache, unspecified
CPT/HCPCS: 36415; 71045; 80048; 80053; 80061; 80307; 83036; 84443; 84484; 85025; 85652; 86141; 93005; 93017; 93306; 99291; G0378

== ENCOUNTER 2025-03-27 17:43 | Emergency (ER) | payer MEDICAID ==
[~2025-03-27] VITALS: Ht 172.7 cm; Wt 82.0 kg
[~2025-03-27 17:43] MED LIST changes: +ATOR20TA50 PO; +LISI-275 PO
[2025-03-27 18:50] LABS: Hematocrit 43.4 % (41.0-53.0); Hemoglobin 14.7 g/dL (13.5-17.5); Mean Corpuscular Hemoglobin 29.4 pg (28.0-32.0); Mean Corpuscular Volume 86.6 fL (80.0-100.0); Nucleated Red Blood Cells % 0.5 %
[2025-03-27 18:58] LABS: Chloride 106 mmol/L (98-107); Potassium 4.3 mmol/L (3.5-5.1); Sodium 142 mmol/L (136-145)
[2025-03-27 18:59] LABS: Anion Gap 8 (5-15); Calcium 9.7 mg/dL (8.7-10.4); Carbon Dioxide 28 mmol/L (20-31)
[2025-03-27 19:04] LABS: BUN/Creatinine Ratio 15.3 (10.0-20.0); Blood Urea Nitrogen 13 mg/dL (9-23); Glucose 83 mg/dL (74-106)
[2025-03-27 19:07] LABS: INR 1.04 (0.9-1.15); Partial Thromboplastin Time 28.6 SEC (24.5-34.5); Prothrombin Time 11.0 sec (9.3-11.8)
--- NOTE | 2025-03-27 19:12 | DVH ---
EXAM: CT HEAD WITHOUT CONTRAST INDICATION: headache TECHNIQUE:: CT images of the head were obtained without administration of IV contrast. CT scans at this facility use dose modulation, iterative reconstruction, and/or weight based dosing when appropriate to reduce radiation dose to as low as reasonably achievable. COMPARISON: None FINDINGS: PARENCHYMA: No acute hemorrhage. There is no mass effect, midline shift, or herniation. There is preservation of the weathers white differentiation. VENTRICLES: No hydrocephalus. EXTRA-AXIAL SPACES: No extra-axial fluid collections. OTHER: The bony structures are intact. Visualized portions of the paranasal sinuses and mastoid air cells are clear. IMPRESSION: 1. No CT evidence of an acute intracranial abnormality.
[2025-03-27] MEDS ORDERED: IBUP-1456 PO (19:38)
--- NOTE | 2025-03-27 19:38 | ED.PDOC ---
HPI (NEURO) HPI Comments 49 year old male presents to ER with complaints of headache x 2 weeks. Patient states he's been occipital headache x 2 weeks. He rates his current pain a 5/10 to occipital scalp and notes he been taking Tylenol for his pain with some relief. Patient presents to ER ambulatory on arrival, alert and oriented x4, with steady gait, in no distress and notes he is concerned because he had a head injury 2 months ago that he was never evaluated for. Denies fever, body aches, chills, n/v, numbness/tingling, dizziness, vision changes, neck pain or any further symptoms/complaints Chief Complaint: Headache Time Seen by MD: 18:10 Primary Care Provider: UNKNOWN Reviewed Notes: Nurses Notes, Medications, Allergies Information Source: Patient Mode of Arrival: Ambulatory Past Medical History PAST MEDICAL HISTORY: Denies Surgical History: Denies all surgeries Family History Family History: Family hx of DM Social History Smoker: Non-Smoker Alcohol: Denies ETOH Use Drugs: Denies Drug Use Lives In: Home Constitutional: denies: chills, diaphoresis, fatigue, fever, malaise, sweats, weakness, others EENTM: denies: blurred vision, double vision, ear bleeding, ear discharge, ear drainage, ear pain, ear ringing, eye pain, eye redness, hearing loss, mouth pain, mouth swelling, nasal discharge, nose bleeding, nose congestion, nose pain, photophobia, tearing, throat pain, throat swelling, voice changes, others Respiratory: denies: cough, hemoptysis, orthopnea, SOB at rest, shortness of breath, SOB with excertion, stridor, wheezing, others Cardiovascular: denies: chest pain, dizzy spells, diaphoresis, Dyspnea on exertion, edema, irregular heart beat, left arm pain, lightheadedness, palpitations, PND, syncope, others Gastrointestinal: denies: abdomen distended, abdominal pain, blood streaked bowels, constipated, diarrhea, dysphagia, difficulty swallowing, hematemesis, melena, nausea, poor appetite, poor fluid intake, rectal bleeding, rectal pain, vomiting, others Genitourinary: denies: burning, dysuria, flank pain, frequency, hematuria, incontinence, penile discharge, penile sore, pain, testicle pain, testicle swelling, urgency, others Neurological: reports: others (As stated in HPI) Musculoskeletal: denies: back pain, gout, joint pain, joint swelling, muscle pain, muscle stiffness, neck pain, others Integumetry: denies: bruises, change in color, change in hair/nails, dryness, laceration, lesions, lumps, rash, wounds, others Allergic/Immunocompromised: denies: Difficulty Healing, Frequent Infections, Hives, Itching, others Hematologic/Lymphatic: denies: anemia, blood clots, easy bleeding, easy bruising, swollen glands, others Endocrine: denies: excessive hunger, excessive sweating, excessive thirst, excessive urination, flushing, intolerance to cold, intolerance to heat, u nexplained weight gain, unexplained weight loss, others Psychiatric: denies: anxiety, bipolar disorder, depression, hopeless, panic disorder, schizophrenia, sleepless, suicidal, others Physical Exam General Appearance: No Apparent Distress HEENT: Normal ENT Inspection, PERRL/EOMI, Pharynx Normal, TMs Normal Neck: Full Range of Motion, Non-Tender, Normal Respiratory: Chest Non-Tender, Lungs Clear, No Accessory Muscle Use, No Respiratory Distress, Normal Breath Sounds Cardiovascular: No Murmur, No Gallop, Regular Rate/Rhythm Breast Exam: Deferred Gastrointestinal: NOT DONE Genitalia: Deferred Pelvic: Deferred Rectal: Deferred Extremities: Normal capillary refill, Normal range of motion Neurologic: Alert, lead applications developer II-XII nml as Tested, No Motor Deficits, Normal Affect, Normal Mood, No Sensory Deficits Cerebellar Function: Normal Reflexes: Normal Skin: Dry, Normal Color, Warm Peripheral Pulses: 2+ carotid (R), 2+ carotid (L), 2+ Radial (R), 2+ Radial (L), 2+ Brachial (R), 2+ Brachial (L) Lymphatic: No Adenopathy Was a procedure done? Was a procedure done?: No Sedation Sedation?: No Differential Diagnosis (SZ) Headache: Cluster, Migraine, CVA, Subarachnoid Hemorrhage, Subdural Hemorrhage, Mass Lesion X-Ray, Labs, Meds, VS Vital Signs Date Time Temp Pulse Resp B/P (MAP) Pulse Ox O2 Delivery O2 Flow Rate FiO2 03/27/25 17:44 97.0 60 18 145/85 97 97.0 Lab Test 03/27/25 18:22 Range/Units White Blood Count 6.5 4.4-10.8 10^3/uL Red Blood Count 5.01 4.5-5.90 10^6/uL Hemoglobin 14.7 13.5-17.5 g/dL Hematocrit 43.4 41.0-53.0 % Mean Corpuscular Volume 86.6 80.0-100.0 fL Mean Corpuscular Hemoglobin 29.4 28.0-32.0 pg Mean Corpuscular Hemoglobin Concent 34.0 32.0-36.0 g/dL Red Cell Distribution Width 12.8 11.8-14.3 % Platelet Count 155 140-450 10^3/uL Mean Platelet Volume 8.9 6.9-10.8 fL Neutrophils (%) (Auto) 62.5 37.0-80.0 % Lymphocytes (%) (Auto) 30.0 10.0-50.0 % Monocytes (%) (Auto) 6.4 0.0-12.0 % Eosinophils (%) (Auto) 0.6 0.0-7.0 % Basophils (%) (Auto) 0.5 0.0-2.0 % Neutrophils # (Auto) 4.1 1.6-8.6 10 ^3/uL Lymphocytes # (Auto) 1.9 0.4-5.4 10 ^3/uL Monocytes # (Auto) 0.4 0-1.3 10 ^3/uL Eosinophils # (Auto) 0 0-0.8 10 ^3/uL Basophils # (Auto) 0 0-0.2 10 ^3/uL Nucleated Red Blood Cells 0.5 % Prothrombin Time 11.0 9.3-11.8 sec Prothrombin Time INR 1.04 0.9-1.15 Activated Partial Thromboplast Time 28.6 24.5-34.5 SEC Sodium Level 142 136-145 mmol/L Potassium Level 4.3 3.5-5.1 mmol/L Chloride Level 106 98-107 mmol/L Carbon Dioxide Level 28 20-31 mmol/L Anion Gap 8 5-15 Blood Urea Nitrogen 13 9-23 mg/dL Creatinine 0.85 0.700-1.30 mg/dL Glomerular Filtration Rate Calc 107 >90 mL/min BUN/Creatinine Ratio 15.3 10.0-20.0 Serum Glucose 83 74-106 mg/dL Calcium Level 9.7 8.7-10.4 mg/dL PATIENT: MARCELLO RONQUILLO JACCT: [id number]: [id number] : 1975 LOC: ER ROOM / BED: / AGE / SEX: 49 / M ADM STATUS: REG ER SERVICE 09 ORDERING PHYSICIAN: BAN ESCOBAR PROCEDURE(s): HWOCT - HEAD WITHOUT CONTRAST REASON: headache ORDER NUMBER(s): [id number], ACCESSION NUMBER(s): [id number] EXAM: CT HEAD WITHOUT CONTRAST INDICATION: headache TECHNIQUE:: CT images of the head were obtained without administration of IV contrast. CT scans at this facility use dose modulation, iterative reconstruction, and/or weight based dosing when appropriate to reduce radiation dose to as low as reasonably achievable. COMPARISON: None FINDINGS: PARENCHYMA: No acute hemorrhage. There is no mass effect, midline shift, or herniation. There is preservation of the weathers white differentiation. VENTRICLES: No hydrocephalus. EXTRA-AXIAL SPACES: No extra-axial fluid collections. OTHER: The bony structures are intact. Visualized portions of the paranasal sinuses and mastoid air cells are clear. IMPRESSION: 1. No CT evidence of an acute intracranial abnormality. ATED BY: ISABELLE MAYES MD DICTATED DATE/TIME: 03/27/251909 SIGNED BY: ISABELLE MAYES MD SIGNED DATE/TIME: 03/27/251909 CC: CT head w/o contrast reviewed CBC reviewed - unremarkable BMP reviewed- unremarkable PT/PTT reviewed - unremarkable Advised to drink plenty of fluids Advised to f/u with PCP in 1-2 days Patient verbalized understanding and agreeable with current plan of care Advised to return to ER immediately if symptoms worsen Images Reviewed?: Images reviewed and evaluated by me Time of 1ST Reevaluation: 19:12 Reevaluation 1ST: N/A Patient Education/Counseling: Diagnosis, Treatment, Prognosis, Need For Follow Up Family Education/Counseling: No Family Present Departure 1 Departure Time of Disposition: 19:37 Impression: Primary Impression: Tension headache Disposition: 01 HOME / SELF CARE / HOMELESS Condition: Stable e-Prescriptions Ibuprofen (Ibuprofen) 800 Mg Tab 1 TAB PO TID PRN, #30 TAB 0 Refills Prov: BAN ESCOBAR 03/27/25 Discharged With: Self Critical Care Note Critical Care Time?: No Stability Stability form required: No Heart Score Heart Score: Heart Score Response (Comments) Value History N/A 0 EKG N/A 0 Age N/A 0 Risk Factors N/A 0 Troponin N/A 0 Total 0 BAN ESCOBAR Mar 27, 2025 19:38
[2025-03-27 20:35] VITALS: BP 142/81; PULSE 64; RESP 17; TEMP 98.2; O2SAT 98
== END 2025-03-27 20:47 | disposition home or self-care (01) ==
LOC: ER 17:43
DX: G44.209 Tension-type headache, unspecified, not intractable (principal); Z79.899 Other long term (current) drug therapy; Z86.2 Personal history of diseases of the blood and blood-forming organs and certain disorders involving the immune mechanism
CPT/HCPCS: 36415; 70450; 80048; 85025; 85610; 85730